=== PATIENT | female | born 1945 | race Hispanic/Latino ===

== ENCOUNTER 2022-10-20 11:40 | Emergency (ER) | payer MEDICARE ==
[~2022-10-20] VITALS: Ht 157.5 cm; Wt 68.9 kg
[~2022-10-20 11:40] MED LIST: ALEN70TA80 PO; AMLO-258 PO; ASPI-556 PO; ATOR20TA65 PO; CA C1TAB74 PO; CHRO1000 PO; ESCI5TAB16 PO; FLUT1DIS IH; METF-446 PO; PANT40TA54 PO; VALS1TAB81 PO
[2022-10-20 12:08] VITALS: BP 151/72; PULSE 69; RESP 16; O2SAT 96
[2022-10-20] MEDS ORDERED: KETOROLAC 30MG VIAL (30MG/ML) IM ONE (19:00)
[2022-10-20] MEDS ORDERED: IBUP-2070 PO (19:12)
[2022-10-20] MEDS ORDERED: DICL100G61 TP (19:12)
== END 2022-10-20 19:26 | disposition home or self-care (01) ==
LOC: EDH 11:40
DX: S62.306A Unspecified fracture of fifth metacarpal bone, right hand, initial encounter for closed fracture (principal); S60.222A Contusion of left hand, initial encounter; F32.A Depression, unspecified; E11.9 Type 2 diabetes mellitus without complications; I10 Essential (primary) hypertension; Z79.51 Long term (current) use of inhaled steroids; Z79.82 Long term (current) use of aspirin; Z79.84 Long term (current) use of oral hypoglycemic drugs; Z79.899 Other long term (current) drug therapy; Z88.0 Allergy status to penicillin; W18.39XA Other fall on same level, initial encounter; Y99.8 Other external cause status; Y93.89 Activity, other specified; Y92.89 Other specified places as the place of occurrence of the external cause
CPT/HCPCS: 99283; 73130; 96372; 29125; J1885

== ENCOUNTER → 2024-02-10 | Outpatient (CLI) | payer OTHER ==
[~2024-02-10] MED LIST changes: +DICL100G61 TP; +IBUP-2070 PO
--- NOTE | 2024-02-10 15:37 | HMCIMG ---
CT CORONARY CALCIFICATION SCORING: Anatomic images were reviewed. The calcium score is being generated and reported separately. This report is for the visualized anatomy only. Visualized portions of the lungs are clear. Hilar and mediastinal structures appear normal. Osseous structures are unremarkable. There is a small hiatal hernia. Impression: 1. Small hiatal hernia, otherwise negative noncardiac findings. 2. The calcium score is 57.1 consistent with a mild degree of calcified plaque. This is 50th percentile for a patient this age. CT was performed with one or more following dose reduction techniques: automated exposure control, adjustment of the mA and kv according to patient's size, or use of a iterative reconstruction technique.
== END | disposition home or self-care (01) ==
LOC: RAH 14:02
PROVIDERS: ATTEND Internal Medicine Cardiovascular Disease
DX: Z13.6 Encounter for screening for cardiovascular disorders (principal); K44.9 Diaphragmatic hernia without obstruction or gangrene
CPT/HCPCS: 75571

== ENCOUNTER → 2024-05-14 | Outpatient (CLI) | payer OTHER ==
--- NOTE | 2024-05-14 12:10 | HMCIMG ---
UPPER GI TRACT, WO KUB REASON: Diaphragmatic hernia without obstruction or gangrene. COMPARISON: None TECHNIQUE: Biphasic upper GI series study was performed. FINDINGS: There is no obstruction to the antegrade passage of barium from mouth through jejunum. Normal esophageal stripping wave is seen. There is moderate size hiatal hernia. Gastroesophageal reflux is seen to level of upper mid thoracic esophagus. Stomach is moderately distended without ulceration or mass lesion. Duodenal bulb and duodenal sleep are unremarkable. IMPRESSION: Moderate size hiatal hernia. Gastroesophageal reflux to the upper mid thoracic esophagus.
== END | disposition home or self-care (01) ==
LOC: RAH 11:10
PROVIDERS: ATTEND Surgery
DX: K21.9 Gastro-esophageal reflux disease without esophagitis (principal); K44.9 Diaphragmatic hernia without obstruction or gangrene; K31.89 Other diseases of stomach and duodenum
CPT/HCPCS: 74240

== ENCOUNTER → 2024-05-15 | Outpatient (CLI) | payer OTHER ==
--- NOTE | 2024-05-15 16:34 | HMCIMG ---
FOOT COMP 3+VWS RT HISTORY: Right foot pain COMPARISON: None TECHNIQUE: 3 images of the right foot were obtained. FINDINGS: There is calcaneal spur. There is no acute displaced fracture or dislocation. Degenerative changes are seen. IMPRESSION: 1. Findings as described above.
== END | disposition home or self-care (01) ==
LOC: RAH 15:55
PROVIDERS: ATTEND Family Medicine
DX: M19.071 Primary osteoarthritis, right ankle and foot (principal); M77.31 Calcaneal spur, right foot; M79.671 Pain in right foot
CPT/HCPCS: 73630

== ENCOUNTER → 2024-05-22 | Outpatient (CLI) | payer OTHER ==
[~2024-05-22] MED LIST changes: +ALEN35TA53 PO; +CARV25TA PO; +CRAN1CAP5 PO; +ESCI-8 PO; +ESOM40CA66 PO; +FAMO40TA7 PO; +GLUC1TAB61 PO; +MULTIVITAMIN PO; +ROPI2TAB53 PO; +TIRZ2.5P SQ; +VITA100059 PO
--- NOTE | 2024-05-22 14:01 | HMCIMG ---
CT HEAD WITHOUT CONTRAST INDICATION: Unspecified injury of head, initial encounter TECHNIQUE: Noncontrast axial helical CT images from the vertex through the skull base using 5 mm slice thickness without contrast material. Coronal and sagittal reconstructions were also included. Dose reduction techniques was used using integrated, automated and adaptive dose reduction exposure control. CT was performed with one or more of the following dose reduction techniques: Automated exposure control, adjustment of the mA and/or kV according to patient size, or use of iterative reconstruction technique. COMPARISON: None FINDINGS: Scattered and coalescent subcortical and periventricular white matter low attenuating areas likely represent residual of chronic small vessel arteriopathy and/or remote vascular insult. Generalized mild cerebral cortical atrophy is present.. No evidence for abnormal extra-axial fluid collections or masses. The ventricles and sulci are normal in size and configuration. No evidence for intracranial parenchymal, epidural, or subdural hemorrhage, mass effect or midline shift. The edge-white matter differentiation is well preserved. No secondary evidence to suggest acute ischemia. Mild calcific plaque is present along the barton of the cavernous segments of both internal carotid arteries. The brainstem and cerebellum appear normal. The visualized orbits appear unremarkable. The visible paranasal sinuses and mastoid air cells are clear. The calvarium appears normal. IMPRESSION: Chronic white matter ischemic changes, mild brain atrophy, and arteriosclerotic disease as described, without acute component.
== END | disposition home or self-care (01) ==
LOC: RAH 11:28
PROVIDERS: ATTEND Family Medicine
DX: S09.90XA Unspecified injury of head, initial encounter (principal); I67.82 Cerebral ischemia; G31.89 Other specified degenerative diseases of nervous system; R90.82 White matter disease, unspecified; I65.23 Occlusion and stenosis of bilateral carotid arteries; H53.9 Unspecified visual disturbance; X58.XXXA Exposure to other specified factors, initial encounter; Y93.89 Activity, other specified; Y92.89 Other specified places as the place of occurrence of the external cause; Y99.8 Other external cause status
CPT/HCPCS: 70450

== ENCOUNTER 2024-05-24 07:42 | Observation (INO) | payer OTHER ==
[2024-05-22 12:26] LABS: BASOPHILS # (AUTO) 0.04 K/uL (0.00-0.20); BASOPHILS % (AUTO) 0.5 % (0.0-5.0); EOSINOPHILS # (AUTO) 0.26 K/uL (0.00-0.70); IMMATURE GRANULOCYTE ABSOLUTE 0.03 K/uL (0-1); LYMPHOCYTES # (AUTO) 1.5 K/uL (1.0-4.8); LYMPHOCYTES % (AUTO) 16.5 % (21.0-51.0); MEAN CORPUSCULAR HEMOGLOBIN 31.2 pg (27.0-33.0); MEAN CORPUSCULAR HGB CONC 34.5 g/dL (32.0-36.0); MEAN CORPUSCULAR VOLUME 90.3 fL (79-99); MONOCYTES # (AUTO) 0.7 K/uL (0.1-1.0); MONOCYTES % (AUTO) 7.4 % (3.0-13.0); NEUTROPHILS # (AUTO) 6.4 K/uL (1.8-7.7); NEUTROPHILS % (AUTO) 72.3 % (40.0-77.0); PLATELET COUNT (AUTO) 351 K/uL (130-400); RED BLOOD CELL COUNT(AUTO) 4.43 MIL/uL (4.00-5.50); RED CELL DISTRIBUTION WIDTH 12.7 % (11.0-15.5); WHITE BLOOD COUNT (AUTO) 8.8 K/uL (4.8-10.8)
[2024-05-22 12:35] VITALS: BP 137/69; PULSE 87; RESP 16; TEMP 98.8
[2024-05-22 12:38] LABS: INR 1.03 (0.85-1.15); PROTHROMBIN TIME 10.9 SEC (9.6-11.6)
[2024-05-22 12:39] LABS: PARTIAL THROMBOPLASTIN TIME 28.4 SEC (26.3-35.5)
[2024-05-22 12:41] LABS: CREATININE 0.8 mg/dL (0.5-1.0); POTASSIUM 3.5 mmol/L (3.5-5.1)
[~2024-05-24] VITALS: Ht 160 cm; Wt 65.5 kg
[2024-05-24] VITALS (27 sets, daily range): BP systolic 102–146; BP diastolic 42–70; PULSE 64–88; RESP 12–20; TEMP 97–98.7; O2SAT 94
[~2024-05-24 07:42] MED LIST changes: -ALEN70TA80 PO; +BUPIvacaine/PF 0.5% 30ML VIAL ONE; -CHRO1000 PO; -DICL100G61 TP; -ESCI5TAB16 PO; -FLUT1DIS IH; -IBUP-2070 PO
[2024-05-24] MEDS: CLINDAMYCIN IVPB 900MG/50ML 50 ML IV ONE (07:46)
[2024-05-24] MEDS: metRONIDazole 500MG/100ML BAG 200 ML ONE (08:16)
[2024-05-24] MEDS ORDERED: LIDOCAINE PF 100MG/5ML (2%) SYRINGE 5ML ONE (10:46)
[2024-05-24] MEDS ORDERED: MIDAZOLAM HCL 1 MG/ML 2ML VIAL ONE (10:47)
[2024-05-24] MEDS ORDERED: rocuRONium bROMide 10MG/1ML 5ML VL ONE (10:47)
[2024-05-24] MEDS ORDERED: FENTanyl CITRate PF 50 MCG/1 ML 2ML VIAL ONE (10:47)
[2024-05-24] MEDS ORDERED: proPOFol 10 MG/ML 20ML VIAL IV ONE (10:47)
[2024-05-24] MEDS ORDERED: phenylEPHRINE HCL 10 MG/ML 1ML VIAL IV ONE (11:30)
[2024-05-24] MEDS ORDERED: GLYCOPYRROLATE 0.2 MG/ML 5 ML VIAL ONE (11:32)
[2024-05-24] MEDS: BUPIvacaine/PF 0.5% 30ML VIAL INJ ONE (11:41)
[2024-05-24] MEDS: hydroMORPHone 1 MG INJ ONE (11:55)
[2024-05-24] MEDS: acetaMINOPHEN 100 ML ONE (11:55)
[2024-05-24] MEDS ORDERED: ALBUMIN (HUMAN) 5% 250 ML IV ONE (12:17)
[2024-05-24] MEDS ORDERED: dexaMETHasone SOD PHOSPHATE 4 MG/ML 1ML VIAL ONE (12:34)
[2024-05-24] MEDS ORDERED: NEOSTIGMINE METHYLSULFATE 1MG/ML IV ONE (12:35)
[2024-05-24] MEDS ORDERED: ondanSETRON 4MG INJ ONE (12:35)
[2024-05-24] MEDS ORDERED: ePHEDrine SULFate 50 MG/ML AMPULE ONE (12:40)
--- NOTE | 2024-05-24 13:48 | PN ---
GENERAL SURGERY PROGRESS NOTE Date/Time Patient Seen: [ 05/24/2024 1:45 p.m.] Problem List: [ ] Interval History: [Postop day 0. Pain tolerable with p.r.n. medication. ] Current Medications Medications (Trade) Dose Ordered Sig/Lorna Route Start Time Stop Time Status Last Admin Dose Admin Enoxaparin Sodium (Lovenox) 40 mg DAILY14 SQ 05/24/24 14:00 06/23/24 13:59 UNV Famotidine (Pepcid 20mg Vial) 20 mg BID IV 05/24/24 21:00 06/23/24 20:59 UNV Lactated Ringer's 1,000 ml @ 125 mls/hr Q8H IV 05/24/24 14:00 06/23/24 13:59 UNV Physical Examination: ABD: [Incisions clean, dry and intact, Dermabond in place Vital Signs (last 8hr) Date Time Temp Pulse Resp B/P (MAP) Pulse Ox O2 Delivery O2 Flow Rate FiO2 05/24/24 07:59 97.0 82 17 146/68 95 Room Air Laboratory: [ ] Chemistry Labs: Test 05/24/24 08:03 Range/Units Whole Blood Glucose 131 H 70-110 MG/DL Diagnostics / Radiology: [Copy/Paste Echos/Imaging Report here] Impression and Plan: [ Plan is for discharge home in the next day or two as long as patient tolerating p.o., ambulatory and pain under control. Discussed with patient and family. They understand and agree.] IRA BROWN May 24, 2024 13:48
[2024-05-24] MEDS ORDERED: ketOROlac 15MG/ML VIAL (15MG/ML) IV PRN (14:00)
[2024-05-24] MEDS ORDERED: ondanSETRON 4MG INJ IVP PRN (14:00)
[2024-05-24] MEDS ORDERED: PROCHLORPERAZINE 10MG/2ML INJ IV PRN (14:00)
[2024-05-24] MEDS ORDERED: hydroMORPHone 1 MG INJ IVP PRN (14:00)
--- NOTE | 2024-05-24 14:10 | OP ---
Operative Note: DATE OF PROCEDURE: 05/24/24 SURGEON: RITU BROWN MD SNOWMAKER: David Brown MD p.a. C ANESTHESIA: General and local ANESTHESIOLOGIST/ORACLE DATABASE ANALYST: [facility] [place] PREOPERATIVE DIAGNOSIS: Symptomatic paraesophageal hiatal hernia and chronic cholecystitis with symptomatic cholelithiasis POSTOPERATIVE DIAGNOSIS: As above SYNOPSIS: Paraesophageal hiatal hernia repair with mesh reinforcement and posterior partial fundoplication performed without complication. Cholecystectomy with intraoperative cholangiogram utilizing IC green injection also performed without complication. PROCEDURE: 1. Robotic assisted paraesophageal hiatal hernia repair with mesh reinforcement 2. Posterior partial fundoplication 3. Cholecystectomy with intraoperative cholangiogram utilizing IC green injection and firefly visual technology 4. EGD ESTIMATED BLOOD LOSS: Minimal, less than 30 cc INDICATIONS: As above DESCRIPTION OF PROCEDURE: After standard precautions and preparations were undertaken a Veress needle and optical trocar were used to enter the abdominal cavity. All other instruments were placed under direct vision. The robotic system was docked in the standard fashion. We began with a cholecystectomy portion of the operation. The gallbladder was retracted cephalad and we began operating around the infundibulum. We are able to achieve a critical view of safety by identifying a single ductal and single vascular structure entering the infundibulum. The duct was verified to be the cystic duct utilizing IC green injection preop and firefly visual technology which allowed us to visualize the entire biliary system from the cystic duct to its junction with the common hepatic and common bile duct. There were no f illing defects. The cystic duct was notably large in caliber. Clips were placed on both structures and both structures were divided. Monopolar cautery was used to remove the gallbladder from the gallbladder fossa. There were no signs of any bile leakage or bleeding and the clips were appropriately located prior to placing the specimen in an Endo-Catch bag. It was removed from the abdominal cavity without incident. We then turned our attention to the paraesophageal hiatal hernia. We opened pars flaccida and identifying the right yesenia of the diaphragm. From there we are able to enter into a nearly avascular plane in the mediastinum. We developed this plane circumferentially until the GE junction was resting in the abdominal cavity without any significant tension. We verified this anatomy use of the EGD scope. My partner passed the EGD scope and visualize the anatomy throughout the case while I remained at the robotic console. Eventually the right and left crura were free of all unwanted attachments and we are able to begin our hiatal hernia repair by suturing the right and left crura back in reapproximation from the crossing fibers and working our way upwards towards the posterior esophageal wall. Care was taken to avoid over tightening. We reinforced the closure due to the poor quality of the tissues by utilizing a Bard slowly absorbable two sided mesh cut into a horseshoe shape. It was placed as an overlay and sutured in place to prevent mesh migration and maximize tissue contact with the mesh. We then mobilize the proximal fundus and performed a partial posterior fundoplication, 270 degree wrap. This was sutured in place over approximately 3-4 cm in length along the distal esophagus. The wrap was also pexy down the right and left side to the undersurface of the diaphragm. A final view of the EGD scope demonstrated that the hernia was repaired in the wrap was in place without any sign of over tightening. The mucosal surface of the esophagus and stomach appeared healthy and well perfused with no signs of injury. Prior to ending the case all instrument counts were verified as correct including needles and sponges. RITU BROWN MD May 24, 2024 14:10
--- NOTE | 2024-05-24 14:50 | NUR ---
PATIENT ARRIVED TO UNIT. ALERT AND ORIENTED X 4. STILL DROWSY. NO COMPLAINTS OF PAIN. 4 INCISIONS ON ABDOMEN, NO ACTIVE BLEEDING NOTED.
[2024-05-24] MEDS: 0.9%NACL 1000ML 1,000 ML IV ONE (16:23)
[2024-05-24] MEDS: ENOXAPARIN SODIUM 40 MG/0.4 ML SYRINGE SQ SCH (17:13)
[2024-05-24] MEDS: LACTATED RINGERS 1000ML 1,000 ML IV SCH (17:17)
[2024-05-25] VITALS (8 sets, daily range): BP systolic 122–145; BP diastolic 58–78; PULSE 70–88; RESP 18–20; TEMP 97.6–98.6; O2SAT 93–95
[2024-05-25] MEDS: FAMOTIDINE 20MG VIAL IV SCH (08:17)
[2024-05-25] MEDS: HYDROcod/acetaMINOPHEN 7.5/325 MG 15 ML UDCUP PO PRN (08:18)
[2024-05-25] MEDS ORDERED: hydroMORPHone 0.5 MG SYG (0.5MG/0.5ML) IVP PRN (10:00)
[2024-05-26 00:55] VITALS: BP 156/70; PULSE 78; RESP 19; TEMP 98.3
[2024-05-26 03:58] VITALS: BP 147/73; PULSE 79; RESP 19; TEMP 98.4
[2024-05-26 07:53] VITALS: BP 151/81; PULSE 77; RESP 18; TEMP 98.3
[2024-05-26 08:00] VITALS: O2SAT 93
[2024-05-26 11:20] VITALS: BP 152/71; PULSE 77; RESP 18; TEMP 98.9
--- NOTE | 2024-05-26 12:01 | NUR ---
PATIENT DISCHARGED. IV REMOVED WITH CATHETER INTACT. PROVIDED PATIENT EDUCATION ON PRIOR CONDITION AND POST OP INSTRUCTIONS WELL FOLLOW UP APPOINTMENT OUTPATIENT. PATIENT IS WAITING FOR TO ARRIVE.
--- NOTE | 2024-05-26 13:29 | NUR ---
DCP: INITIAL ASSESSMENT Patient lives with spouse, Matthieu Parrish. She has no home services. DME: BPM, glucometer (no insulin). Patient is able to complete ADLs and drives. PCP is Dr. Henrique Harvey. Pharmacy is [facility] located on [facility] in [place]. DCP home. Addendum: 05/26/24 at 1334 by AMISH JACKSON SS Amended: Links added.
== END 2024-05-26 12:40 | disposition home or self-care (01) ==
LOC: DAH 07:42 → INTOOBSV 07:43 → DAH 07:43 → DAHIP 07:43 → 3CH 14:50
PROVIDERS: ADMIT Surgery; ATTEND Surgery
DX: K44.9 Diaphragmatic hernia without obstruction or gangrene (principal); K80.10 Calculus of gallbladder with chronic cholecystitis without obstruction; K22.70 Barrett's esophagus without dysplasia; K21.00 Gastro-esophageal reflux disease with esophagitis, without bleeding; I10 Essential (primary) hypertension; E78.5 Hyperlipidemia, unspecified; F41.9 Anxiety disorder, unspecified; F32.A Depression, unspecified; M81.0 Age-related osteoporosis without current pathological fracture; E11.9 Type 2 diabetes mellitus without complications; Z79.899 Other long term (current) drug therapy; Z86.2 Personal history of diseases of the blood and blood-forming organs and certain disorders involving the immune mechanism
CPT/HCPCS: 80048; 85025; 85610; 85730; 86850; 86900; 86901; 36415; 47563; 43282; 96372 ×2; 82948 ×2; 74300; 96374; 97161; 97116; 96376; A6260; G0378 ×45; A4663; A4215 ×2; P9045; J3010; J7030; J3490 ×7; J2003; J2250; J2704; J2405; J2710; J0665 ×2; J1650 ×2; J1100; J2371; C1781; A4930; A4223 ×2; A4213; A4222; A4221; A4216; A4600; 43235; J1171